=== PATIENT | male | born 1995 | race Caucasian/White ===

== ENCOUNTER 2022-05-06 13:37 | Emergency (ER) | payer BC ==
--- NOTE | 2022-05-06 14:38 | RAD REPORT ---
EXAM DESCRIPTION: Jamel Blakely (2 Views)05/06/2022 2:19 pm CLINICAL HISTORY: Chest pain COMPARISON: None FINDINGS: The lungs appear clear of acute infiltrate. The heart is normal size IMPRESSION: No acute abnormalities displayed
[2022-05-06 16:38] LABS: Absolute Lymphocytes (CBC) 1.8 K/uL (0.7-4.9); Hematocrit 46.3 % (39.6-49.0); Lymphocytes % 24.6 % (15.3-44.8); MCV 91.4 fL (80-100); MPV 7.7 fL (7.6-11.3); RBC Red Blood Cell Count 5.07 M/uL (4.33-5.43)
[2022-05-06 17:19] LABS: Potassium 3.8 mmol/L (3.5-5.1); Troponin High Sensitivity 3.7 pg/mL (<58.9)
--- NOTE | 2022-05-06 17:56 | ER ---
Nurse's Notes [facility] Name: Gilmar Jones III Age: 26 yrs Sex: Male : 1995 Arrival Date: 05/06/2022 Time: 13:39 Bed IW1 Private MD: Diagnosis: Chest pain, unspecified Presentation: 05/06 14:53 Chief complaint: Patient states: chest discomfort that began 1 week ago. Pt denies aa5 cough/congestion, reports mild SOB. Coronavirus screen: shortness of breath. Ebola Screen: Patient denies travel to an Ebola-affected area in the 21 days before illness onset. Initial Sepsis Screen: Does the patient meet any 2 criteria? No. Patient's initial sepsis screen is negative. Does the patient have a suspected source of infection? No. Patient's initial sepsis screen is negative. Risk Assessment: Do you want to hurt yourself or someone else? Patient reports no desire to harm self or others. Onset of symptoms was May 2022. 14:53 Acuity: CHARLETTE 3 aa5 14:53 Method Of Arrival: Ambulatory aa5 Historical: - Allergies: 14:54 No Known Allergies; aa5 - Home Meds: 14:54 None [Active]; aa5 - PMHx: 14:54 None; aa5 - PSHx: 14:54 ear tubes as a child; aa5 - Immunization history:: Adult Immunizations unknown. - Social history:: Smoking status: Patient denies any tobacco usage or history of. Screenin:16 [facility] ED Fall Risk Assessment (Adult) History of falling in the last 3 months, iw including since admission No falls in past 3 months (0 pts). Abuse screen: Denies threats or abuse. Denies injuries from another. Nutritional screening: No deficits noted. Tuberculosis screening: No symptoms or risk factors identified. Assessment: 18:16 Reassessment: Patient appears in no apparent distress at this time. Patient and/or iw family updated on plan of care and expected duration. Pain level reassessed. Patient is alert, oriented x 3, equal unlabored respirations, skin warm/dry/pink. Patient denies pain at this time. Patient states feeling better. Patient states symptoms have improved. Vital Signs: 14:53 BP 136 / 84; Pulse 103; Resp 18 S; Temp 98.7(TE); Pulse Ox 99% on R/A; Weight 74.84 kg aa5 (R); Height 5 ft. 9 in. (175.26 cm) (R); 14:53 Body Mass Index 24.37 (74.84 kg, 175.26 cm) aa5 ED Course: 13:39 Patient arrived in ED. rg4 13:42 Dajuan Gavin DO is Attending Physician. ms3 14:53 Arm band placed on. aa5 14:54 Triage completed. aa5 16:28 Inserted saline lock: 20 gauge in right antecubital area, using aseptic technique. zm Blood collected. 16:28 Basic Metabolic Panel Sent. zm 16:29 CBC with Diff Sent. zm 16:29 Troponin HS Sent. 17:55 Mateusz Walton MD is Referral Physician. ms3 18:03 Diana Pal, RN is Primary Nurse. iw 18:16 No provider procedures requiring assistance completed. IV discontinued, intact, iw bleeding controlled, No redness/swelling at site. Pressure dressing applied. Administered Medications: No medications were administered Medication: 18:16 VIS not applicable for this client. iw Outcome: 17:55 Discharge ordered by . ms3 18:15 Discharged to home ambulatory. iw 18:15 Condition: good 18:15 Discharge instructions given to patient, Instructed on discharge instructions, follow up and referral plans. Demonstrated understanding of instructions, follow-up care. 18:16 Patient left the ED. iw Signatures: Diana Pal, RN RN Divya Quintana RN RN aa5 Mary Espinosa rg4 Dajuan Gavin DO DO ms3 Mel Fragoso Corrections: (The following items were deleted from the chart) 14:55 14:54 PSHx: None; aa5 aa5
--- NOTE | 2022-05-06 17:56 | EDPHYS ---
Physician Documentation [facility] Name: Gilmar Jones III Age: 26 yrs Sex: Male : 1995 Arrival Date: 05/06/2022 Time: 13:39 Bed IW1 Private MD: ED Physician Dajuan Gavin HPI: 05/06 14:27 This 26 yrs old Male presents to ER via Unassigned with complaints of Chest Discomfort. ms3 14:27 26-year-old male with no past medical history presents for mild chest pressure that ms3 began on Friday. Patient states his discomfort is a 2/10. Patient states his discomfort is worse when lying down at night and he is not thinking of anything. Patient states the pain is better when he is active.. Historical: - Allergies: 14:54 No Known Allergies; aa5 - Home Meds: 14:54 None [Active]; aa5 - PMHx: 14:54 None; aa5 - PSHx: 14:54 ear tubes as a child; aa5 - Immunization history:: Adult Immunizations unknown. - Social history:: Smoking status: Patient denies any tobacco usage or history of. ROS: 14:27 Constitutional: Negative for fever, and chills. Neck: Negative for injury, pain, and ms3 swelling. 14:27 Respiratory: Negative for shortness of breath, cough, wheezing, and pleuritic chest pain, Abdomen/GI: Negative for abdominal pain, nausea, vomiting, diarrhea, and constipation, MS/Extremity: Negative for injury and deformity, Skin: Negative for injury, rash, and discoloration. 14:27 Cardiovascular: Positive for chest pain. 14:27 All other systems are negative. Exam: 14:11 ECG was reviewed by the Attending Physician. ms3 14:27 Constitutional: This is a well developed, well nourished patient who is awake, alert, ms3 and in no acute distress. Head/Face: Normocephalic, atraumatic. Neck: Trachea midline, no cervical lymphadenopathy. Supple, full range of motion without nuchal rigidity, or vertebral point tenderness. No Meningismus. Chest/axilla: Normal chest wall appearance and motion. Nontender with no deformity. Cardiovascular: Regular rate and rhythm with a normal S1 and S2. No gallops, murmurs, or rubs. Normal PMI, no JVD. No pulse deficits. Respiratory: Lungs have equal breath sounds bilaterally, clear to auscultation and percussion. No rales, rhonchi or wheezes noted. No increased work of breathing, no retractions or nasal flaring. Abdomen/GI: Soft, non-tender, with normal bowel sounds. No distension or tympany. No guarding or rebound. No evidence of tenderness throughout. Skin: Warm, dry with normal turgor. Normal color with no rashes, no lesions, and no evidence of cellulitis. MS/ Extremity: Pulses equal, no cyanosis. Neurovascular intact. Full, normal range of motion. Psych: Awake, alert, with orientation to person, place and time. Behavior, mood, and affect are within normal limits. Vital Signs: 14:53 BP 136 / 84; Pulse 103; Resp 18 S; Temp 98.7(TE); Pulse Ox 99% on R/A; Weight 74.84 kg aa5 (R); Height 5 ft. 9 in. (175.26 cm) (R); 14:53 Body Mass Index 24.37 (74.84 kg, 175.26 cm) aa5 MDM: 14:02 Patient medically screened. ms3 14:27 Differential diagnosis: abnormal EKG, pneumonia, pneumothorax. ED course: PERC negative.ms3 05/06 14:06 Order name: Chest Pa And Lat (2 Views) XRAY 3 05/06 14:06 Order name: EKG; Complete Time: 14:07 ms3 05/06 14:06 Order name: EKG - Nurse/Tech; Complete Time: 14:11 ms3 05/06 14:31 Order name: Basic Metabolic Panel ms3 05/06 14:31 Order name: CBC with Diff 05/06 14:31 Order name: Troponin HS ms05/06 14:31 Order name: IV Saline Lock; Complete Time: 16:29 ms3 05/06 14:31 Order name: Labs collected and sent; Complete Time: 16:29 ms3 05/06 14:31 Order name: O2 Per Protocol; Complete Time: 16:29 ms3 05/06 14:31 Order name: O2 Sat Monitoring; Complete Time: 16:29 ms3 05/06 14:39 Order name: RAD; Complete Time: 15:57 EDMS 05/06 16:43 Order name: CBC with Automated Diff; Complete Time: 16:51 EDMS 05/06 17:19 Order name: Basic Metabolic Panel; Complete Time: 17:51 EDMS 05/06 17:19 Order name: Troponin High Sensitivity; Complete Time: 17:51 EDMS EC:11 Rate is 85 beats/min. Rhythm is regular. QRS [place] is Normal. [place] interval is normal. QRS ms3 interval is normal. Clinical impression: NSR with incomplete RBBB. Interpreted by me. Reviewed by me. Administered Medications: No medications were administered Disposition Summary: 05/06/22 17:55 Discharge Ordered Location: Home ms3 Condition: Stable ms3 Diagnosis - Chest pain, unspecified ms3 Followup: ms3 - With: Mateusz Walton MD - When: 2 - 3 days - Reason: Recheck today's complaints Discharge Instructions: - Discharge Summary Sheet ms3 - Nonspecific Chest Pain, Adult ms3 Forms: - Work release form iw - Medication Reconciliation Form ms3 - Thank You Letter ms3 - Antibiotic Education ms3 - Prescription Opioid Use ms3 Signatures: Dispatcher [employer] Divya Diana, RN RN aa5 Dajuan Gavin DO DO ms3 Corrections: (The following items were deleted from the chart) 14:55 14:54 PSHx: None; milana cortés
--- NOTE | 2022-05-07 17:35 | EKG ---
Test Date: 2022-05-06 Test Time: 14:08:22 Firearms Instructor: CARY MEASUREMENT RESULTS: Intervals: Rate: 85 NE: 154 QRSD: 102 QT: 370 QTc: 440 [place]: P: 79 NE: 154 QRS: 7 T: 59 INTERPRETIVE STATEMENTS: Normal sinus rhythm Incomplete right bundle branch block Borderline ECG No previous ECG available for comparison Electronically Signed On 05-07-22 17:32:45 [employer] by Octaviano Hu
== END 2022-05-06 18:16 | disposition home or self-care (01) ==
LOC: ER 13:37
DX: R07.89 Other chest pain (principal)
CPT/HCPCS: 36415; 71046; 80048; 84484; 85025; 93005; 99283